=== PATIENT | male | born 1985 | race Caucasian/White ===

== ENCOUNTER 2018-03-17 17:02 | Emergency (ER) | payer OTHER ==
[~2018-03-17] VITALS: Ht 175.3 cm; Wt 72.0 kg
[2018-03-17] MEDS ORDERED: HYDROmorphone INJ 1 MG/ML SYR ONE (17:16)
[2018-03-17 17:23] VITALS: TEMP 36.7; Ht 175.3 cm; Wt 72.0 kg
[2018-03-17] MEDS ORDERED: OPTIRAY 320 IV PRN (17:30)
[2018-03-17] MEDS ORDERED: IBUP600T44 PO (17:41)
[2018-03-17] MEDS ORDERED: MIRT15TA2 PO (17:41)
[2018-03-17] MEDS ORDERED: AMLO10TA3 PO (17:41)
[2018-03-17] MEDS ORDERED: SULF800T23 PO (17:41)
[2018-03-17] MEDS ORDERED: DOXY100C76 PO (17:41)
[2018-03-17 17:42] LABS: BASO % 0.4 %; BASO ABS # 0.06 K/uL (0-0.2); EOS % 0.8 %; EOS ABS # 0.11 K/uL (0-0.5); HEMATOCRIT 43.1 % (42-52); HEMOGLOBIN 15.1 g/dL (14.0-18.0); IG# 0.05 K/uL (0.00-0.02); LYMPH ABS # 2.02 K/uL (1.2-3.4); MEAN CELL VOLUME 87.8 fL (80-100); MEAN CORPUSCULAR HEMOGLOBIN 30.8 pg (25-34); MEAN PLATELET VOLUME 10.4 fL (7.4-10.4); MONO % 7.3 %; MONO ABS # 1.06 K/uL (0.11-0.59); NEUT % 77.2 %; NEUT ABS # 11.18 K/uL (1.4-6.5); PLATELET COUNT 261 K/uL (130-400); RED CELL DISTRIBUTION WIDTH CV 12.7 % (11.5-14.5); RED CELL DISTRIBUTION WIDTH SD 40.8 fL (36.4-46.3); WHITE BLOOD COUNT 14.48 K/uL (4.8-10.8)
[2018-03-17] MEDS ORDERED: HYDR12.56 PO (17:42)
[2018-03-17] MEDS ORDERED: HYDROmorphone INJ 1 MG/ML SYR IV STA ×2 (18:01→18:58)
[2018-03-17 18:06] LABS: ALBUMIN 4.2 gm/dl (3.4-5.0); CALCIUM 9.1 mg/dl (8.5-10.1); CREATININE 1.2 mg/dl (0.60-1.40); POTASSIUM 3.1 mmol/L (3.5-5.1); TOTAL PROTEIN 7.8 gm/dl (6.4-8.2)
[2018-03-17] MEDS ORDERED: HEPARIN 25000 UNIT/500 ML D5W ONE (18:06)
[2018-03-17] MEDS ORDERED: HEPARIN SOD 5000 UNIT/0.5 ML CARP ONE (18:07)
--- NOTE | 2018-03-17 18:13 | DIAGNOSTIC IMAGING REPORT ---
CT ANGIO AA VERONICA LE RUNOFF CT DOSE: 1114.02 mGy.cm CLINICAL HISTORY: Absent left lower extremity pulse. TECHNIQUE: CT angiography was performed of the abdomen and both lower extremities in a dynamic helical fashion during intravenous administration of 119 cc of Optiray 320. MIP imaging was performed. A dose lowering technique was utilized adhering to the principles of ALARA. COMPARISON STUDY: None. FINDINGS: Imaging to the lung bases reveals a descending thoracic aortic stent. No hepatic or splenic masses are visualized are 2 phase study. The gallbladder appears normal. No pancreatic masses are visualized. No adrenal masses are visualized. No solid renal masses are visualized this arterial phase study. There are few tiny peripheral left renal hypodensities. Tiny infarct cannot be excluded. There are no transition zones indicate bowel obstruction. No acute inflammatory changes are present within the bowel. Old post right changes involve the right acetabulum. There is no evidence of abdominal aortic aneurysm or dissection. There is no evidence of celiac, superior mesenteric, or renal artery stenosis. There is no evidence of abdominal aortic stenosis. There is no evidence of common or external iliac artery stenosis. There is no evidence for right common femoral artery stenosis. The left common femoral artery is occluded distally with extension to the superficial femoral artery. The occlusion extends for a 5 cm segment. There is distal reconstitution. On a statistical basis this is secondary to an embolus. The remainder of the left superficial femoral artery appears normal. There is no evidence of right superficial femoral artery stenosis. On the right, there is a distal popliteal artery filling defect, likely representing an additional embolus. The anterior tibial posterior tibial and peroneal arteries are patent to the level of the ankle on the right. On the left, there is a filling defect within the left popliteal artery consistent with a small embolus. The posterior tibial and peroneal arteries runoff to the ankle. There is occlusion of the distal left anterior tibial artery. IMPRESSION: 1. 5 cm segmental occlusion of the distal left common femoral artery and proximal left superficial femoral artery with distal reconstitution. An embolus is suspected. 2. Filling defect within the left popliteal artery consistent with a small embolus. 3. Occlusion of distal left anterior tibial artery. 4. Filling defect within distal right popliteal artery, consistent with an additional embolus. 5. Very subtle peripheral left renal hypodensities. Tiny infarcts cannot be excluded. Electronically signed by: Allan Han M.D. 03/17/2018 6:12 PM Dictated Date/Time: 03/17/2018 5:55 PM
[2018-03-17 18:15] LABS: INR 1.1 (0.9-1.1)
[2018-03-17] MEDS ORDERED: HEPARIN 25,000 UNIT/500ML D5W 500 ML IV SCH (18:45)
--- NOTE | 2018-03-17 19:10 | EMERGENCY ROOM VISIT NOTE ---
History Report prepared by Shaista: Rajani Arrieta Under the Supervision of: Dr. Buzz Chau D.O. 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 He reports the pain starts at the top of his left foot and goes to his thigh. Patient initially had some mild paresthesias in while he was walking up the steps started to have severe pain. He states his episode began with some left leg tingling which resolved but he has numbness in his left leg and states he cannot move of feel it. Patient has never had this before. He does have a history of a previous aortic rupture with a stent placed per his report from a traumatic accident. Pt denies headache, change in vision, fevers , chest pain, back pain, shortness of breath, nausea, vomiting, diarrhea, pain with urination, and melena. 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 A total of 10 systems reviewed and were otherwise negative. Past Medical & Surgical Surgical Problems: (1) Hx of heart artery stent Family History Patient reports no known family medical history. Social History Smoking Status: Unknown if Ever Smoked Drug Use: none Housing Status: other Occupation Status: other Current/Historical Medications Scheduled Amlodipine (Norvasc), 10 MG PO DAILY Doxycycline Monohydrate (Monodox), 100 MG PO BID Hydrochlorothiazide (Hctz), 12.5 MG PO DAILY Mirtazapine Soltab (Remeron Soltab), 15 MG PO HS Sulfa/Trimethoprim (Bactrim Ds 800MG/160MG), 1 TAB PO BID Scheduled PRN Ibuprofen (Motrin), 600 MG PO Q6H PRN for Pain Allergies Coded Allergies: No Known Allergies (Unverified , 03/17/18) Physical Exam Vital Signs Date Time Temp Pulse Resp B/P (MAP) Pulse Ox O2 Delivery O2 Flow Rate FiO2 03/17/18 19:51 90 20 124/77 100 03/17/18 19:31 98 20 124/77 100 Room Air 03/17/18 19:07 109 03/17/18 18:56 89 18 124/75 100 Room Air 03/17/18 18:15 107 18 137/77 100 Room Air 03/17/18 17:23 36.7 97 22 153/107 100 Room Air Physical Exam GENERAL: Sitting up in bed, alert, holding left leg, shackled to bed, screaming , non-toxic EYE EXAM: normal conjunctiva. OROPHARYNX: no exudate, no erythema, lips, buccal mucosa, and tongue normal and mucous membranes are moist NECK: supple, no nuchal rigidity, no adenopathy, non-tender LUNGS: Clear to auscultation. Normal chest wall mechanics HEART: Tachycardic rate, no murmurs, S1 normal and S2 normal ABDOMEN: abdomen soft, non-tender, normo-active bowel sounds, no masses, no rebound or guarding. BACK: Back is symmetrical on inspection and there is no deformity, no midline tenderness, no CVA tenderness. SKIN: no rashes and no bruising UPPER EXTREMITIES: upper extremities are grossly normal. LOWER EXTREMITIES: No pitting edema. Unable to appreciate femoral popliteal or DP pulses on left leg. Skin is cool, left leg is slightly pale. NEURO EXAM: Barely able to flex and extend at the hip and knee of left leg. BEDSIDE ULTRASOUND: shows no arterial flow in left femoral artery. There is no waveform and there is also no color flow. Right lower extremity with biphasic arterial waveform and good flow. Medical Decision & Procedures ER Provider Diagnostic Interpretation: Radiology results as stated below per my review and the radiologist's interpretation: CT ANGIO AA VERONICA LE RUNOFF CT DOSE: 1114.02 mGy.cm CLINICAL HISTORY: Absent left lower extremity pulse. TECHNIQUE: CT angiography was performed of the abdomen and both lower extremities in a dynamic helical fashion during intravenous administration of 119 cc of Optiray 320. MIP imaging was performed. A dose lowering technique was utilized adhering to the principles of ALARA. COMPARISON STUDY: None. FINDINGS: Imaging to the lung bases reveals a descending thoracic aortic stent. No hepatic or splenic masses are visualized are 2 phase study. The gallbladder appears normal. No pancreatic masses are visualized. No adrenal masses are visualized. No solid renal masses are visualized this arterial phase study. There are few tiny peripheral left renal hypodensities. Tiny infarct cannot be excluded. There are no transition zones indicate bowel obstruction. No acute inflammatory changes are present within the bowel. Old post right changes involve the right acetabulum. There is no evidence of abdominal aortic aneurysm or dissection. There is no evidence of celiac, superior mesenteric, or renal artery stenosis. There is no evidence of abdominal aortic stenosis. There is no evidence of common or external iliac artery stenosis. There is no evidence for right common femoral artery stenosis. The left common femoral artery is occluded distally with extension to the superficial femoral artery. The occlusion extends for a 5 cm segment. There is distal reconstitution. On a statistical basis this is secondary to an embolus. The remainder of the left superficial femoral artery appears normal. There is no evidence of right superficial femoral artery stenosis. On the right, there is a distal popliteal artery filling defect, likely representing an additional embolus. The anterior tibial posterior tibial and peroneal arteries are patent to the level of the ankle on the right. On the left, there is a filling defect within the left popliteal artery consistent with a small embolus. The posterior tibial and peroneal arteries runoff to the ankle. There is occlusion of the distal left anterior tibial artery. IMPRESSION: 1. 5 cm segmental occlusion of the distal left common femoral artery and proximal left superficial femoral artery with distal reconstitution. An embolus is suspected. 2. Filling defect within the left popliteal artery consistent with a small embolus. 3. Occlusion of distal left anterior tibial artery. 4. Filling defect within distal right popliteal artery, consistent with an additional embolus. 5. Very subtle peripheral left renal hypodensities. Tiny infarcts cannot be excluded. Electronically signed by: Allan Han M.D. 03/17/2018 6:12 PM Laboratory Results 03/17/18 17:15 Red Blood Count 4.91, Mean Corpuscular Volume 87.8, Mean Corpuscular Hemoglobin 30.8, Mean Corpuscular Hemoglobin Concent 35.0, Mean Platelet Volume 10.4, Neutrophils (%) (Auto) 77.2, Lymphocytes (%) (Auto) 14.0, Monocytes (%) (Auto) 7.3, Eosinophils (%) (Auto) 0.8, Basophils (%) (Auto) 0.4, Neutrophils # (Auto) 11.18, Lymphocytes # (Auto) 2.02, Monocytes # (Auto) 1.06, Eosinophils # (Auto) 0.11, Basophils # (Auto) 0.06 03/17/18 17:15 Test 03/17/18 17:15 03/17/18 17:57 03/17/18 18:00 White Blood Count 14.48 K/uL (4.8-10.8) Red Blood Count 4.91 M/uL (4.7-6.1) Hemoglobin 15.1 g/dL (14.0-18.0) Hematocrit 43.1 % (42-52) Mean Corpuscular Volume 87.8 fL (80-100) Mean Corpuscular Hemoglobin 30.8 pg (25-34) Mean Corpuscular Hemoglobin Concent 35.0 g/dl (32-36) Platelet Count 261 K/uL (130-400) Mean Platelet Volume 10.4 fL (7.4-10.4) Neutrophils (%) (Auto) 77.2 % Lymphocytes (%) (Auto) 14.0 % Monocytes (%) (Auto) 7.3 % Eosinophils (%) (Auto) 0.8 % Basophils (%) (Auto) 0.4 % Neutrophils # (Auto) 11.18 K/uL (1.4-6.5) Lymphocytes # (Auto) 2.02 K/uL (1.2-3.4) Monocytes # (Auto) 1.06 K/uL (0.11-0.59) Eosinophils # (Auto) 0.11 K/uL (0-0.5) Basophils # (Auto) 0.06 K/uL (0-0.2) RDW Standard Deviation 40.8 fL (36.4-46.3) RDW Coefficient of Variation 12.7 % (11.5-14.5) Immature Granulocyte % (Auto) 0.3 % Immature Granulocyte # (Auto) 0.05 K/uL (0.00-0.02) Anion Gap 14.0 mmol/L (3-11) Est Creatinine Clear Calc Drug Dose 86.8 ml/min Estimated GFR () 90.9 Estimated GFR (Non- 78.4 BUN/Creatinine Ratio 19.8 (10-20) Calcium Level 9.1 mg/dl (8.5-10.1) Total Bilirubin 0.4 mg/dl (0.2-1) Direct Bilirubin 0.1 mg/dl (0-0.2) Aspartate Amino Transf (AST/SGOT) 17 U/L (15-37) Alanine Aminotransferase (ALT/SGPT) 26 U/L (12-78) Alkaline Phosphatase 81 U/L (45-117) Total Protein 7.8 gm/dl (6.4-8.2) Albumin 4.2 gm/dl (3.4-5.0) Lipase 164 U/L (73-393) Prothrombin Time 11.3 SECONDS (9.0-12.0) Prothromb Time International Ratio 1.1 (0.9-1.1) Lactic Acid Level 2.4 mmol/L (0.4-2.0) Urine Color YELLOW Urine Appearance CLEAR (CLEAR) Urine pH 7.5 (4.5-7.5) Urine Specific [place] 1.028 (1.000-1.030) Urine Protein NEG (NEG) Urine Glucose (UA) NEG (NEG) Urine Ketones 1+ (NEG) Urine Occult Blood NEG (NEG) Urine Nitrite NEG (NEG) Urine Bilirubin NEG (NEG) Urine Urobilinogen NEG (NEG) Urine Leukocyte Esterase NEG (NEG) Urine WBC (Auto) 1-5 /hpf (0-5) Urine RBC (Auto) 0-4 /hpf (0-4) Urine Hyaline Casts (Auto) 1-5 /lpf (0-5) Urine Epithelial Cells (Auto) 0-5 /lpf (0-5) Urine Bacteria (Auto) NEG (NEG) Laboratory results per my review. Medications Administered Medications (Trade) Dose Ordered Sig/Judy Route Start Time Stop Time Status Last Admin Dose Admin Hydromorphone HCl (Dilaudid Inj) 1 mg STK-MED ONCE .ROUTE 03/17/18 17:16 03/17/18 17:17 DC 03/17/18 17:21 1 MG Hydromorphone HCl (Dilaudid Inj) 1 mg NOW STAT IV 03/17/18 18:01 03/17/18 18:02 DC 03/17/18 18:15 1 MG Heparin Sodium/ Dextrose (Heparin 25,000 Unit/500ml D5W) 25,000 unit STK-MED ONCE .ROUTE 03/17/18 18:06 03/17/18 18:07 DC 03/17/18 18:14 25,000 UNIT Heparin Sodium (Porcine) (Heparin Sq 5000 Unit/0.5ml) 10,000 unit STK-MED ONCE .ROUTE 03/17/18 18:07 03/17/18 18:08 DC 03/17/18 18:15 6,000 UNIT Hydromorphone HCl (Dilaudid Inj) 1 mg NOW STAT IV 03/17/18 18:58 03/17/18 18:59 DC 03/17/18 19:04 1 MG Hydromorphone HCl (Dilaudid Inj) 1 mg TODAY@1946 ONCE IV 03/17/18 19:46 03/17/18 20:11 DC 03/17/18 19:46 1 MG ECG Per My Interpretation Indication: other (LLE numbnes) Rate (beats per minute): 89 Rhythm: sinus rhythm Findings: T-wave inversion (lead III), other (normal axis, no PVCs) ED Course ED COURSE: Vital signs were reviewed and showed hypertension situationally The patients medical record was reviewed The above diagnostic studies were performed and reviewed. ED treatments and interventions as stated above. 1654: The patient was evaluated in room B5. A complete history and physical examination was performed. 1716: Ordered Dilaudid Inj 1 mg IV 1724: I reviewed the patient's case with Dr. Ye, Vascular Surgery. He will look at the patients imaging. 1753: Ordered Heparin Sodium/Dextrose 1 ea IV 1755: I checked on the patient at this time. He has no preference for transfer. He will be transferred to [facility] 1801: Ordered Dilaudid Inj 1 mg IV 1804: I reviewed the patient's case with [facility]. They declined transfer at this time. 1814: Ordered Heparin Sodium/Dextrose 25,000 units .route 1815: Ordered Heparin Sodium (Porcine) 6000 units .route 1816: I reviewed the patient's case with Dr. Barros, [facility] , Dr. Barragan, [facility]. They will accept for transfer and evaluate the patient for further management. 1836: Upon reevaluation, the patient is in agreement. I discussed my findings with the patient and he understands and agrees with the treatment plan. Based on the patients age, coexisting illnesses, exam and lab findings the decision to treat as an outpatient was made. The patient remained stable while under my care. The patient appeared well at the time of transfer. The patient will be evaluated for further management. 185: Ordered Dilaudid Inj 1 mg IV Medical Decision Patient is a 32-year-old male who presents to ER from intermediate for severe left leg pain which started 30 minutes prior to arrival. I receive medical command call. Patient was given IV fentanyl prior to arrival. On exam his left lower extremity is pale cool and unable to palpate a pulse. Bedside ultrasound performed by myself shows no arterial flow in the left femoral. I also applied color and there is no flow seen in this window either. Based on this labs were obtained quickly and we establish a 18-gauge IV and patient was taken emergently for CTA of his lower extremity. I interpreted films and it appeared as though he had a clot in the left common femoral tracking to the superficial femoral. Prior to going to CT I had already discussed the case with Dr. Ye from vascular surgery. He is currently not on and unable to come in but was willing to review the images. After the CT he reviewed the images as well. We both agreed he would benefit from heparin. He was placed on heparin drip and bolus. Patient again denied any chest pain or shortness of breath. He was given multiple doses of IV Dilaudid. Discussed with [facility] who notes due to volume he is unable to accept the patient. We discussed with the patient and he preferred [facility]. Patient was accepted and discussed with vascular surgery and was accepted to the ED by Dr. Barragan. Lactate was slightly elevated as expected. He does have a mild leukocytosis of 14,000. CO2 is slightly low at 19 and potassium slightly low at 3. Patient will be transferred via helicopter to [facility]. He was monitored closely while in the ER. Medication Reconcilliation Current Medication List: was personally reviewed by me Blood Pressure Screening Patient's blood pressure: Elevated blood pressure Blood pressure disposition: Elevated BP felt to be situational Consults Time Called: 1723 Consulting Physician: Dr. Ye, Vascular Surgery Returned Call: [phone] I reviewed the patient's case with Dr. Ye, Vascular Surgery. He will look at the patients imaging. Additional Consults: Time Called: 175 Consulted Physician: [facility] Returned Call: [phone] Additional Comments: I reviewed the patient's case with [facility]. They declined transfer at this time. Time Called: 180 Consulted Physician: [facility] Returned Call: [phone] Additional Comments: I reviewed the patient's case with Dr. Barros, [facility], [facility]. They will accept for transfer and evaluate the patient for further management. Impression Primary Impression: Ischemic leg Additional Impression: Hypokalemia Critical Care I have personally spent 75 minutes of critical care time in the direct management of this patient. This includes bedside care, interpretation of diagnostic studies, and testing, discussion with consultants, patient, and family members, and other required patient management activities. This 75 minutes is in excess of all separately billable procedures. Scribe Attestation The scribe's documentation has been prepared under my direction and personally reviewed by me in its entirety. I confirm that the note above accurately reflects all work, treatment, procedures, and medical decision making performed by me. Departure Information Dispostion Transfer Acute Care Facility ([facility], [facility]) Problem Qualifiers
[2018-03-17] MEDS ORDERED: HYDROmorphone INJ 1 MG/ML SYR IV ONE (19:46)
[2018-03-17 19:51] VITALS: BP 124/77; PULSE 90; O2SAT 100
[2018-03-17] MEDS ORDERED: NURSING VERBAL MED ORDER ONE (20:15)
== END 2018-03-17 19:52 | disposition short-term general hospital (02) ==
LOC: C.EDB 17:02
DX: I70.202 Unspecified atherosclerosis of native arteries of extremities, left leg (principal); E87.6 Hypokalemia; Z79.899 Other long term (current) drug therapy

== ENCOUNTER 2018-07-24 20:28 | Inpatient (IN) ==
[2018-07-24 21:16] LABS: Basophils # (auto) 0.05 K/uL (0-0.2); Basophils % (auto) 0.7 %; Eosinophils # (auto) 0.14 K/uL (0-0.5); Eosinophils % (auto) 1.8 %; Hematocrit (blood only) 45.3 % (42-52); Hemoglobin 15.7 g/dL (14.0-18.0); Immature Granulocytes # (auto) 0.02 K/uL (0.00-0.02); Immature Granulocytes % (auto) 0.3 %; Lymphocytes # (auto) 2.42 K/uL (1.2-3.4); Lymphocytes % (auto) 31.6 %; Mean Corpuscular Hgb Conc 34.7 g/dL (32-36); Mean Corpuscular Volume 80.9 fL (80-100); Mean Platelet Volume 9.6 fL (7.4-10.4); Monocytes # (auto) 0.46 K/uL (0.11-0.59); Neutrophils # (auto) 4.56 K/uL (1.4-6.5); Neutrophils % (auto) 59.6 %; Platelet Count 276 K/uL (130-400); RDW Coefficient of Variation 15.7 % (11.5-14.5); RDW Standard Deviation 46.4 fL (36.4-46.3); White Blood Count 7.65 K/uL (4.8-10.8)
[2018-07-24 21:26] LABS: INR 2.1 (0.9-1.1); Partial Thromboplastin Ratio 1.3; Partial Thromboplastin Time 33.6 Seconds (21.0-31.0)
[2018-07-24 21:32] LABS: BUN Creatinine Ratio 14.2 (10-20); Calcium 9.2 mg/dl (8.5-10.1); Est GFR (African American) 96.7; Est GFR (Non-African American) 83.4; Potassium 3.4 mmol/L (3.5-5.1)
[2018-07-24] MEDS ORDERED: OPTIRAY 320 125ml IV PRN (21:46)
--- NOTE | 2018-07-24 22:14 | CT Scan Report ---
CT ANGIOGRAM OF THE ABDOMEN AND PELVIS WITH BILATERAL LOWER EXTREMITY RUNOFF CLINICAL HISTORY: Left leg pain. COMPARISON STUDY: CT angiogram of the abdomen and pelvis with lower extremity runoff dated 03/17/2018 . TECHNIQUE: Following the IV administration of 115 cc of Optiray 320, CT angiogram of the abdomen and pelvis with bilateral lower externally runoff was performed from the lung bases to the feet. Images a re reviewed in the axial, sagittal, and coronal planes. 3-D MIPS images are created and assessed. IV contrast was administered without complication. A dose lowering technique was utilized adhering to t he principles of ALARA. CT DOSE: 1093.56 mGy.cm FINDINGS: Lower chest: The heart is normal in size and without pericardial effusion. Minimal nodular thickening is seen on the right major fissure. The lung bases are otherwise clear noting dependent atelectasis. A stent graft is partially visualized in the descending thoracic aorta. The visualized portions of t he thoracic aorta are widely patent. There is a tiny hiatal hernia. Liver: The contrast-enhanced liver is normal in size, contour, and attenuation. There is no intrahepa tic or ductal dilatation. The main portal vein appears patent. A 1.7 cm hypervascular focus in the in ferior right lobe as seen on image #175. This is unchanged from previous and may represent a flash fi lling hemangioma. Gallbladder: Unremarkable. Spleen: Normal in size and attenuation noting heterogeneous arterial phase enhancement. Pancreas: Unremarkable. Adrenal glands: Unremarkable. Kidneys: The contrast since kidneys are normal in size and without hydronephrosis. The kidneys enhanc e symmetrically. Cortical scarring is noted in the lower pole of the right kidney. Abdominal aorta and iliac arteries: The abdominal aorta is normal in course and caliber. The iliac ar teries are widely patent bilaterally. There is no dissection. Major branches of the abdominal aorta: The celiac trunk, superior mesenteric, and inferior mesenteric arteries are widely patent. An accessory left hepatic artery arises from the left gastric artery. Th e splenic artery is diminutive but patent. Single bilateral renal arteries are widely patent. Right lower extremity runoff: The right common femoral artery is widely patent, as is the right profu nda femoris artery. The right superficial femoral artery and popliteal arteries are widely patent. Th ere is a small filling defect identified at the origin of the tibioperoneal trunk seen on image #[id number] consistent with a small embolus. There is three-vessel runoff to the foot. Left lower extremity runoff: The calf vessels are diminutive. The left common femoral artery is widel y patent, as is the left profunda femoris artery. The left superficial femoral and the proximal to mi d portions of the popliteal artery are widely patent. There is a large and nearly occlusive focal jeromy ling defect identified within the distal popliteal artery just above the bifurcation seen on image #9 17 consistent with embolus. There is three-vessel runoff to the foot. Bowel: The small bowel and colon are normal in course and caliber. The appendix is well-visualized a nd normal. Peritoneum: There is no intraperitoneal free air or abdominal ascites. There is a small fat-containin g umbilical hernia. Lymphadenopathy: None. Pelvic viscera: The bladder, prostate, and seminal vesicles are normal as visualized. Postoperative c hange is noted in the left groin. Skeletal structures: No destructive bony lesions are seen. Lower extremity soft tissues: There is mild soft tissue edema in the left lower extremity which is as ymmetric to the right. IMPRESSION: 1. Unremarkable CT angiogram of the abdominal aorta and its major branches, as well as the iliac radha lady. 2. The common femoral and superficial femoral arteries are widely patent bilaterally. 3. There is a large and nearly occlusive focal filling defect identified within the distal left popli teal artery just above the bifurcation consistent with an embolus. 4. There is a small nonocclusive filling defect identified at the origin of the right tibioperoneal t runk consistent with a small embolus. 5. There is three-vessel runoff to the foot bilaterally. 6. There are no acute infectious or inflammatory findings in the abdomen or pelvis. 7. A 1.7 cm hypervascular lesion in the inferior right lobe of the liver is unchanged from previous a nd although incompletely characterized likely represents a small hemangioma. 8. There is mild soft tissue edema in the left lower extremity which is asymmetric to the right. 9. Additional findings as above. Electronically signed by: Keyur Long M.D. 07/24/2018 10:11 PM
[2018-07-24] MEDS ORDERED: Heparin IV Standard *NO* Bolus ONE (23:37)
[2018-07-24] MEDS ORDERED: HEPARIN 25000 UNIT/500 ML D5W IV ONE (23:44)
[2018-07-24] MEDS ORDERED: POTASSIUM CHLORIDE 20 MEQ TABCR PO STA (23:44)
[2018-07-24] MEDS ORDERED: POTASSIUM CHLORIDE 10 MEQ TABCR PO ONE (23:54)
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
--- NOTE | 2018-07-25 00:57 | History & Physical Report ---
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 (ER provider already in touch with Dr. Ye.) Replace potassium, hold home diuretic for now Nicotine patch as needed Complete Bactrim Rx DVT prophylaxis heparin Full code Present on Admission?: Yes History of Present Illness Chief Complaint: Left leg pain Primary Care Provider: [facility] History obtained from patient and records. 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 Recent confinement [facility] February 2018 for ischemic left lower extremity status post L femoropopliteal catheter thromboembolectomy status post decompressive fasciotomy. Thoracic aortic endograft thrombus noted on CTA during confinement. Patient discharged on Lovenox Coumadin bridge. Improved postop LLE swelling on outpatient [facility] [place] surgery follow-up visit last May 2018. Follow-up scheduled August 2018 with contemplated repeat CTA of the chest to guide decision regarding duration of Coumadin therapy as per outpatient note. One day history of achy left calf pain symptoms worse with pressure and movement. No chest pain, no SOB. No fever, no chills. Patient brought to the emergency room. CT angio aorta with runoff showed: 1. Unremarkable CT angiogram of the abdominal aorta and its major branches, as well as the iliac arteries. 2. The common femoral and superficial femoral arteries are widely patent bilaterally. 3. There is a large and nearly occlusive focal filling defect identified within the distal left popliteal artery just above the bifurcation consistent with an embolus. 4. There is a small nonocclusive filling defect identified at the origin of the right tibioperoneal trunk consistent with a small embolus. 5. There is three-vessel runoff to the foot bilaterally. 6. There are no acute infectious or inflammatory findings in the abdomen or pelvis. 7. A 1.7 cm hypervascular lesion in the inferior right lobe of the liver is unchanged from previous and although incompletely characterized likely represents a small hemangioma. 8. There is mild soft tissue edema in the left lower extremity which is asymmetric to the right. Vascular surgery recommended transfer to tertiary center. [facility] unable to accept patient due to bed unavailability. IV heparin started at the ER. Medical History as above Surgical History : Procedures, leg fasciotomy/debridement Family History : Hypertension Personal/Social history : 1/4 pack daily, no EtOH intake, half-way inmate Allergies Allergy/AdvReac Type Severity Reaction Status Date / Time No Known Allergies Allergy Unverified 07/24/18 21:35 Home Medications Home Medications Medication Instructions Recorded Confirmed Type amlodipine 10 mg PO DAILY 07/24/18 07/24/18 History benzoyl peroxide 1 applic TOPICAL BID 07/24/18 07/24/18 History hydrochlorothiazide 12.5 mg PO DAILY 07/24/18 07/24/18 History mirtazapine [Remeron] 15 mg PO HS 07/24/18 07/24/18 History sulfamethoxazole-trimethoprim 1 tab PO BID 07/24/18 07/24/18 History [Bactrim DS] warfarin 7.5 mg PO HS 07/24/18 07/24/18 History Past Med/Surg History Medical History History of blood clots Surgical History History of fasciotomy Social History Current Living Situation: Other Current Living Situation Comment: half-way Other Information That Helps Us Care for You: No Feels Safe at Home: Yes Smoking Status: Current every day smoker Tobacco Type: cigarettes Cigarettes per Day: 5 Tobacco Cessation Education Requested by Patient: No Hx Alcohol Use: No Beliefs That Will Affect Care: None Preferred Language: Japanese Review of Systems As per HPI, all 10 systems reviewed, all other ROS negative Physical Exam 2 Vital Signs (Past 24 Hours): Last Vital Signs Temp 36.9 C 07/24/18 20:29 Pulse 80 07/24/18 23:01 Resp 18 07/24/18 23:01 BP 140/78 07/24/18 23:01 Pulse Ox 94 07/24/18 23:01 Physical Exam: GENERAL: Comfortable, no respiratory distress, shackled to stretcher SKIN: Normal color, warm HEENT: Bespectacled, pink palpebral conjunctivae, no ptosis, dry buccal mucosa NECK : Supple, no tenderness CHEST : CTA, no tenderness HEART : RRR, no obvious murmurs; no palpable popliteal pulse, LLE ABDOMEN: Some distention, nontender EXTREMITIES : Minimal LLE swelling, no tenderness; healed/well coaptated incision sites left lower extremity NEUROLOGIC : Coherent, no facial asymmetry, no other gross focality Results & Data Laboratory Results Laboratory Results WBC 7.65 K/uL (4.8-10.8) 07/24/18 21:06 RBC 5.60 M/uL (4.7-6.1) 07/24/18 21:06 Hgb 15.7 g/dL (14.0-18.0) 07/24/18 21:06 Hct 45.3 % (42-52) 07/24/18 21:06 MCV 80.9 fL (80-100) 07/24/18 21:06 MCH 28.0 pg (25-34) 07/24/18 21:06 MCHC 34.7 g/dL (32-36) 07/24/18 21:06 RDW Std Deviation 46.4 fL (36.4-46.3) H 07/24/18 21:06 RDW Coeff of Vignesh 15.7 % (11.5-14.5) H 07/24/18 21:06 Plt Count 276 K/uL (130-400) 07/24/18 21:06 MPV 9.6 fL (7.4-10.4) 07/24/18 21:06 Immature Gran % (Auto) 0.3 % 07/24/18 21:06 Neut % (Auto) 59.6 % 07/24/18 21:06 Lymph % (Auto) 31.6 % 07/24/18 21:06 [place] % (Auto) 6.0 % 07/24/18 21:06 Eos % (Auto) 1.8 % 07/24/18 21:06 Baso % (Auto) 0.7 % 07/24/18 21:06 Immature Gran # (Auto) 0.02 K/uL (0.00-0.02) 07/24/18 21:06 Neut # (Auto) 4.56 K/uL (1.4-6.5) 07/24/18 21:06 Lymph # (Auto) 2.42 K/uL (1.2-3.4) 07/24/18 21:06 [place] # (Auto) 0.46 K/uL (0.11-0.59) 07/24/18 21:06 Eos # (Auto) 0.14 K/uL (0-0.5) 07/24/18 21:06 Baso # (Auto) 0.05 K/uL (0-0.2) 07/24/18 21:06 PT 20.0 Seconds (9.0-12.0) H 07/24/18 21:06 INR 2.1 (0.9-1.1) H 07/24/18 21:06 APTT 33.6 Seconds (21.0-31.0) H 07/24/18 21:06 PTT Ratio 1.3 07/24/18 21:06 Sodium 138 mmol/L (136-145) 07/24/18 21:06 Potassium 3.4 mmol/L (3.5-5.1) L 07/24/18 21:06 Chloride 102 mmol/L (98-107) 07/24/18 21:06 Carbon Dioxide 29 mmol/L (21-32) 07/24/18 21:06 Anion Gap 7.0 (3-11) 07/24/18 21:06 BUN 16 mg/dl (7-18) 07/24/18 21:06 Creatinine 1.14 mg/dl (0.6-1.4) 07/24/18 21:06 Est Cr Clr Drug Dosing 103.0 ml/min 07/24/18 21:06 Est GFR ( Amer) 96.7 07/24/18 21:06 Est GFR (Non-Af Amer) 83.4 07/24/18 21:06 BUN/Creatinine Ratio 14.2 (10-20) 07/24/18 21:06 Glucose 94 mg/dl (70-99) 07/24/18 21:06 Calcium 9.2 mg/dl (8.5-10.1) 07/24/18 21:06 Magnesium 2.0 mg/dl (1.8-2.4) 07/24/18 21:06 Diagnostic Findings CTA as above
[2018-07-25] MEDS ORDERED: Heparin IV Standard *NO* Bolus SCH (02:02)
[2018-07-25] MEDS ORDERED: PROCHLORPERAZINE 5 MG in SYRINGE 4 ML IV PRN (02:02)
[2018-07-25] MEDS ORDERED: TRAMADOL HCL 50 MG TABLET PO PRN (02:02)
[2018-07-25] MEDS ORDERED: MoRPHine SULFATE 4 MG/ML 1 ML CARP\\VIAL IV PRN (02:02)
[2018-07-25] MEDS ORDERED: ACETAMINOPHEN 325 MG TAB PO PRN (02:02)
[2018-07-25] MEDS ORDERED: NSS + 20MEQ KCL 20 MEQ/1,000 ML BAG IV ONE (02:30)
[2018-07-25] MEDS: HEPARIN STANDARD DEXTROSE 25,000 UNITS/500 ML IV SCH ×2 (03:55→17:17)
[2018-07-25 06:28] LABS: Basophils # (auto) 0.07 K/uL (0-0.2); Basophils % (auto) 0.9 %; Eosinophils # (auto) 0.19 K/uL (0-0.5); Eosinophils % (auto) 2.6 %; Hematocrit (blood only) 40.7 % (42-52); Hemoglobin 13.7 g/dL (14.0-18.0); Immature Granulocytes # (auto) 0.01 K/uL (0.00-0.02); Immature Granulocytes % (auto) 0.1 %; Mean Corpuscular Hgb Conc 33.7 g/dL (32-36); Mean Corpuscular Volume 81.4 fL (80-100); Mean Platelet Volume 9.8 fL (7.4-10.4); Monocytes # (auto) 0.73 K/uL (0.11-0.59); Monocytes % (auto) 9.8 %; Neutrophils # (auto) 3.53 K/uL (1.4-6.5); Neutrophils % (auto) 47.6 %; Platelet Count 250 K/uL (130-400); RDW Standard Deviation 47.3 fL (36.4-46.3); White Blood Count 7.43 K/uL (4.8-10.8)
[2018-07-25 06:55] LABS: Partial Thromboplastin Ratio 2.7
[2018-07-25 06:56] LABS: Partial Thromboplastin Time 69.2 Seconds (21.0-31.0)
[2018-07-25 07:03] LABS: BUN Creatinine Ratio 17.7 (10-20); Calcium 8.4 mg/dl (8.5-10.1); Creatinine Clr Calc Pharmacy 113.1 ml/min; Est GFR (African American) 120.6; Potassium 3.9 mmol/L (3.5-5.1)
[2018-07-25] MEDS: AMLODIPINE BESYLATE 5 MG TAB PO SCH (09:04)
--- NOTE | 2018-07-25 11:09 | Consultation ---
Date of Consultation July 25, 2018 Assessment & Plan (1) Embolism of left popliteal artery: At this point in time he is asymptomatic for his the small embolizations. We will treat him conservatively and keep him anticoagulated. If he should develop pain or ischemic changes of the lower extremities then surgical intervention will be needed. (2) Thrombus of aorta: I did order a CTA of his thoracic aorta to better evaluate the area of suspected thrombus at the site of endovascular repair. Thank you very much for letting us participate in the care of this patient. History of Present Illness Reason for Consultation: Embolism in both lower extremities. Attending Physician: Onur Lacey MD History of Present Illness This is a 32-year-old gentleman who had a traumatic rupture of the thoracic aorta in 2017. This was repaired with endovascular graft. He subsequently developed embolization to his legs undergoing thrombolytic therapy followed by fasciotomies. At this point he is developed discomfort in his left calf which occurred one day prior to admission. He claims that this is the same as it did in the past when he had his embolizations however not as bad. He was admitted and found to have a thrombus in his left popliteal distally as well as his tibioperoneal trunk and the right leg. He has no rest pain in his legs at this point in time and he denies any claudication prior to this admission. He does have a clot present in his aortic arch in the area of the repair per his history. He was on anticoagulation with Coumadin for this. Allergies Allergy/AdvReac Type Severity Reaction Status Date / Time No Known Allergies Allergy Unverified 07/24/18 21:35 Home Medications Home Medications Medication Instructions Recorded Confirmed Type amlodipine 10 mg PO DAILY 07/24/18 07/24/18 History benzoyl peroxide 1 applic TOPICAL BID 07/24/18 07/24/18 History hydrochlorothiazide 12.5 mg PO DAILY 07/24/18 07/24/18 History mirtazapine [Remeron] 15 mg PO HS 07/24/18 07/24/18 History sulfamethoxazole-trimethoprim 1 tab PO BID 07/24/18 07/24/18 History [Bactrim DS] warfarin 7.5 mg PO HS 07/24/18 07/24/18 History Patient History Medical History History of blood clots Surgical History History of fasciotomy Social History Current Living Situation: Other Current [facility] Situation Comment: [facility] Other Information That Helps Us Care for You: No Feels Safe at Home: Yes Smoking Status: Current every day smoker Tobacco Type: cigarettes Cigarettes per Day: 5 Tobacco Cessation Education Requested by Patient: No Hx Alcohol Use: No Beliefs That Will Affect Care: None Preferred Language: Gabonese Communication Ability: Effective Hydrographic Surveyor Required: No Review of Systems Constitutional: no problem reported Respiratory: no problem reported Gastrointestinal: no problem reported Musculoskeletal: no problem reported Integumentary: no problem reported Neurologic: no problem reported Psychiatric: no problem reported Physical Exam 2 Vital Signs (Past 24 Hours): Last Vital Signs Temp 36.7 C 07/25/18 07:31 Pulse 72 07/25/18 07:31 Resp 18 07/25/18 07:31 BP 117/70 07/25/18 07:31 Pulse Ox 95 07/25/18 07:31 On exam he is awake oriented x3 is in no apparent distress. Blood pressure is 117/70 his pulse is 72. Lungs are clear heart had a regular rate and rhythm. His abdominal exam was benign. There is no masses felt. Vascular exam reveals radials, carotids, superficial temporal arteries 3+2 bilaterally. Femoral pulses, dorsalis pedis pulses, posterior tibial artery pulses are all +2 bilaterally. There is good capillary refill in both feet. Neurologic exam is intact.
[2018-07-25] MEDS ORDERED: IOVERSOL 100ml IV PRN (11:35)
--- NOTE | 2018-07-25 11:54 | CT Scan Report ---
Study: CT angiography of the chest HISTORY: Peripheral embolism FINDINGS: Study is performed to multi phase fashion. There is an aortic mesh stent extending from the aortic arch inferiorly to slightly superior to the diaphragm. The enhanced component of the study sh ows a trace amount of thrombus within the lumen of the aorta although a major thrombus component is n ot appreciated. Hilar and mediastinal regions show no significant adenopathy. The lungs are considered clear. No evidence for infiltrate or pneumothorax. IMPRESSION: 1. Vascular stent within the thoracic aorta extending from the aortic arch to a position slightly abo ve the diaphragmatic hiatus .2. Trace amount of intraluminal thrombus with the bulk of the stent widely patent. 3. Study chest is otherwise negative. Electronically signed by: Otoniel Dunaway M.D. 07/25/2018 11:52 AM
--- NOTE | 2018-07-25 17:06 | Hospitalist Progress Note ---
Date of Service July 25, 2018 Assessment & Plan (1) Arterial thromboembolism: Left Popliteal artery Embolus Thrombus of Aorta H/O Thromboembolectomy/fasciotomy 02/2018 H/O Thoracic aortic endograft thrombosis on Coumadin H/O Traumatic aortic rupture sp TEVAR (2016) On coumadin therapy chronically PT/INR :2.1 on 07/24/18 Continue Heparin ggt Currently asymptomatic Plan to treat conservatively for now unless patient become symptomatic Appreciate Vascular Surgery Input Hypertension stable Continue Amlodipine Hypokalemia Likely 2/2 diuretics Replace Potassium as needed Monitor Ongoing tobacco abuse [employer] to quit H/O Osteomyelitis right fourth finger Continue Bactrim Rx (last dose August 2018) DVT Px: On Heparin ggt Code Status: Full Code Subjective Patient is seen and examined at bedside Currently denies any leg pain Also denies chest pain, dyspnea, dizziness, nausea Guards at bedside On Heparin ggt Physical Exam 2 Vital Signs (Past 24 Hours): Last Vital Signs Temp 36.9 C 07/25/18 15:00 Pulse 62 07/25/18 15:00 Resp 20 07/25/18 15:00 BP 125/67 07/25/18 15:00 Pulse Ox 95 07/25/18 15:00 Physical Exam: Physical Exam: Vitals signs as noted above General Appearance:Moderately built and nourished, no apparent distress Head: normocephalic, Atraumatic Eyes: normal inspection, EOMI Neck: supple, Trachea midline Respiratory/Chest: Normal breath sounds, CTA Cardiovascular: S1, S2, No murmur Abdomen/GI:Soft, Non tender, Bowel sounds present Extremities/Musculoskelatal:normal inspection, no edema Neurologic/Psych:AAOX3, grossly no focal neurological deficits Skin: normal color, warm Results & Data Laboratory Results Short CBC 07/24/18 07/25/18 Range/Units 21:06 05:58 WBC 7.65 7.43 (4.8-10.8) K/uL Hgb 15.7 13.7 L (14.0-18.0) g/dL Hct 45.3 40.7 L (42-52) % Plt Count 276 250 (130-400) K/uL BMP 07/24/18 07/25/18 21:06 05:58 Sodium 138 140 Potassium 3.4 L 3.9 Chloride 102 107 Carbon Dioxide 29 28 BUN 16 17 Creatinine 1.14 0.95 Glucose 94 80 Calcium 9.2 8.4 L Diagnostic Findings CTA: 1. Vascular stent within the thoracic aorta extending from the aortic arch to a position slightly above the diaphragmatic hiatus .2. Trace amount of intraluminal thrombus with the bulk of the stent widely patent. 3. Study chest is otherwise negative. ABD CTA: 1. Unremarkable CT angiogram of the abdominal aorta and its major branches, as well as the iliac arteries. 2. The common femoral and superficial femoral arteries are widely patent bilaterally. 3. There is a large and nearly occlusive focal filling defect identified within the distal left popliteal artery just above the bifurcation consistent with an embolus. 4. There is a small nonocclusive filling defect identified at the origin of the right tibioperoneal trunk consistent with a small embolus. 5. There is three-vessel runoff to the foot bilaterally. 6. There are no acute infectious or inflammatory findings in the abdomen or pelvis. 7. A 1.7 cm hypervascular lesion in the inferior right lobe of the liver is unchanged from previous and although incompletely characterized likely represents a small hemangioma. 8. There is mild soft tissue edema in the left lower extremity which is asymmetric to the right. 9. Additional findings as above.
[2018-07-25] MEDS ORDERED: MIRTAZAPINE TAB 15 MG TAB PO SCH (21:00)
[2018-07-25] MEDS: SULFAMETHOXAZOLE/TRIMETHOPRIM DS 800/160MG TAB PO SCH (21:38)
[2018-07-26 05:54] LABS: Hematocrit (blood only) 39.8 % (42-52); Hemoglobin 13.4 g/dL (14.0-18.0); Mean Corpuscular Hgb Conc 33.7 g/dL (32-36); Mean Corpuscular Volume 81.4 fL (80-100); Mean Platelet Volume 9.7 fL (7.4-10.4); Platelet Count 219 K/uL (130-400); RDW Standard Deviation 47.9 fL (36.4-46.3); Red Blood Count 4.89 M/uL (4.7-6.1); White Blood Count 6.13 K/uL (4.8-10.8)
[2018-07-26 06:17] LABS: Partial Thromboplastin Ratio 4.2
[2018-07-26 06:20] LABS: Partial Thromboplastin Time 109.2 Seconds (21.0-31.0)
[2018-07-26 06:32] LABS: BUN Creatinine Ratio 16.5 (10-20); Calcium 8.1 mg/dl (8.5-10.1); Creatinine Clr Calc Pharmacy 126.4 ml/min; Est GFR (African American) 131.8; Est GFR (Non-African American) 113.7
[2018-07-26] MEDS: AMLODIPINE BESYLATE 5 MG TAB PO SCH (08:16)
[2018-07-26] MEDS: SULFAMETHOXAZOLE/TRIMETHOPRIM DS 800/160MG TAB PO SCH (08:17)
--- NOTE | 2018-07-26 09:50 | Surgery Progress Note ---
Date of Service July 26, 2018 Assessment & Plan (1) Embolism of left popliteal artery: No intervention is planned for his popliteal artery blood clot. He does have a small clot in the right lower extremity which is which he claims was there in the past. The clot in the left leg may also be old from prior embolization. At this point in time he needs to be back on his anticoagulation and therapeutic. At that time he could be discharged back to his facility. (2) Thrombus of aorta: CTA of his thoracic aorta shows an endograft in place with no evidence of endoleak. There is slight bird beaking of the proximal portion of the graft but no evidence of significant thrombus is noted. Subjective Patient is not complaining of any left leg pain at all at this time. Physical Exam 2 Vital Signs (Past 24 Hours): He is ambulating around his room without difficulty.Last Vital Signs Temp 36.6 C 07/26/18 07:32 Pulse 60 07/26/18 07:32 Resp 14 07/26/18 07:32 BP 115/68 07/26/18 07:32 Pulse Ox 98 07/26/18 07:32 He maintains good pulses in both lower extremities. There is good capillary refill and no ischemic changes of either lower extremity.
--- NOTE | 2018-07-26 10:00 | Communication Note ---
Date of Service: July 26, 2018 Needs follow up by [facility] vascular in [place].
[2018-07-26 10:18] LABS: Prothrombin Time 19.5 Seconds (9.0-12.0)
[2018-07-26] MEDS: HEPARIN STANDARD DEXTROSE 25,000 UNITS/500 ML IV SCH (12:21)
--- NOTE | 2018-07-26 12:57 | Hospitalist Progress Note ---
Date of Service July 26, 2018 Assessment & Plan (1) Arterial thromboembolism: Left Popliteal artery Embolus Thrombus of Aorta H/O Thromboembolectomy/fasciotomy 02/2018 H/O Thoracic aortic endograft thrombosis on Coumadin H/O Traumatic aortic rupture sp TEVAR (2016) On coumadin therapy chronically PT/INR :2.0 today Plan to discontinue Heparin ggt and resume coumadin Currently asymptomatic Plan to treat conservatively for now unless patient become symptomatic Appreciate Vascular Surgery Input Popliteal artery clot is likely chronic from prior embolization Thrombus of aorta is considered to be insignificant and no evidence of endograft leak Needs follow up with [facility] Vascular surgery in [place] Hypertension stable Continue Amlodipine Hypokalemia Likely 2/2 diuretics Replace Potassium as needed Monitor Ongoing tobacco abuse [employer]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 H/O Osteomyelitis right fourth finger Continue Bactrim Rx (last dose August 2018) DVT Px: On Heparin ggt Code Status: Full Code Subjective Patient is seen and examined at bedside Doing well today denies any leg pain No other complaints Also denies chest pain, dyspnea, dizziness, nausea, abd pain Guards at bedside Planned to be discharged back to correctional facility today Physical Exam 2 Vital Signs (Past 24 Hours): Last Vital Signs Temp 36.6 C 07/26/18 07:32 Pulse 60 07/26/18 07:32 Resp 14 07/26/18 07:32 BP 115/68 07/26/18 07:32 Pulse Ox 98 07/26/18 07:32 Physical Exam: Physical Exam: Vitals signs as noted above General Appearance:Moderately built and nourished, no apparent distress Head: normocephalic, Atraumatic Eyes: normal inspection, EOMI Neck: supple, Trachea midline Respiratory/Chest: Normal breath sounds, CTA Cardiovascular: S1, S2, No murmur Abdomen/GI:Soft, Non tender, Bowel sounds present Extremities/Musculoskelatal:normal inspection, no edema Neurologic/Psych:AAOX3, grossly no focal neurological deficits Skin: normal color, warm Results & Data Laboratory Results Short CBC 07/26/18 Range/Units 05:43 WBC 6.13 (4.8-10.8) K/uL Hgb 13.4 L (14.0-18.0) g/dL Hct 39.8 L (42-52) % Plt Count 219 (130-400) K/uL BMP 07/26/18 05:43 Sodium 140 Potassium 4.0 Chloride 108 H Carbon Dioxide 26 BUN 14 Creatinine 0.85 Glucose 88 Calcium 8.1 L
--- NOTE | 2018-07-26 13:03 | Discharge Summary ---
Date of Service July 26, 2018 Admission HPI Per Admitting Provider History obtained from patient and records. 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 Recent confinement [facility] February 2018 for ischemic left lower extremity status post L femoropopliteal catheter thromboembolectomy status post decompressive fasciotomy. Thoracic aortic endograft thrombus noted on CTA during confinement. Patient discharged on Lovenox Coumadin bridge. Improved postop LLE swelling on outpatient [facility] Vascular surgery follow-up visit last May 2018. Follow-up scheduled August 2018 with contemplated repeat CTA of the chest to guide decision regarding duration of Coumadin therapy as per outpatient note. One day history of achy left calf pain symptoms worse with pressure and movement. No chest pain, no SOB. No fever, no chills. Patient brought to the emergency room. CT angio aorta with runoff showed: 1. Unremarkable CT angiogram of the abdominal aorta and its major branches, as well as the iliac arteries. 2. The common femoral and superficial femoral arteries are widely patent bilaterally. 3. There is a large and nearly occlusive focal filling defect identified within the distal left popliteal artery just above the bifurcation consistent with an embolus. 4. There is a small nonocclusive filling defect identified at the origin of the right tibioperoneal trunk consistent with a small embolus. 5. There is three-vessel runoff to the foot bilaterally. 6. There are no acute infectious or inflammatory findings in the abdomen or pelvis. 7. A 1.7 cm hypervascular lesion in the inferior right lobe of the liver is unchanged from previous and although incompletely characterized likely represents a small hemangioma. 8. There is mild soft tissue edema in the left lower extremity which is asymmetric to the right. Vascular surgery recommended transfer to tertiary center. [facility] and [facility] unable to accept patient due to bed unavailability. IV heparin started at the ER. 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 Vascular stent within the thoracic aorta extending from the aortic arch to a position slightly above the diaphragmatic hiatus .2. Trace amount of intraluminal thrombus with the bulk of the stent widely patent. 3. Study chest is otherwise negative. CTA ABD and Pelvis: 1. Unremarkable CT angiogram of the abdominal aorta and its major branches, as well as the iliac arteries. 2. The common femoral and superficial femoral arteries are widely patent bilaterally. 3. There is a large and nearly occlusive focal filling defect identified within the distal left popliteal artery just above the bifurcation consistent with an embolus. 4. There is a small nonocclusive filling defect identified at the origin of the right tibioperoneal trunk consistent with a small embolus. 5. There is three-vessel runoff to the foot bilaterally. 6. There are no acute infectious or inflammatory findings in the abdomen or pelvis. 7. A 1.7 cm hypervascular lesion in the inferior right lobe of the liver is unchanged from previous and although incompletely characterized likely represents a small hemangioma. 8. There is mild soft tissue edema in the left lower extremity which is asymmetric to the right. 9. Additional findings as above. 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 Thrombus of aorta is considered to be insignificant and no evidence of endograft leak Needs follow up with [facility] Vascular surgery in [place] Hypertension stable Continue Amlodipine Hypokalemia Likely 2/2 diuretics Replace Potassium as needed Monitor Ongoing tobacco abuse [facility] to quit H/O Osteomyelitis right fourth finger Continue Bactrim Rx (last dose August 2018) DVT Px: On Heparin ggt Code Status: Full Code Total Time Total Time Spent Total Time Spent (In Minutes): 42 minutes Total Time Includes: Examination of the Patient, Discharge Planning, Medication Reconciliation, Communication With Other Providers and Other Discharge Plan Discharge Items [facility] Disposition: [facility] Reason For Visit: LE THROMBUS Discharge Diagnosis: 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 Discharge Goals: Decrease discomfort, Improve disease control and Improve function Activity: Resume your previous activity Non-emergency contact: Primary Care Provider and Surgeon Call non-emergency contact if: you have any medication questions, your symptoms worsen, your pain is not controlled, your pain is worsening, your pain is unusual for you and you have a fever Diet: Heart Healthy Addtl Provider Instructions: Follow up with your Physician in 1 week Follow up with your Vascular Surgeon in [facility] in 1-2 weeks Quit smoking tobacco as advised Seek immediate medical attention if your symptoms reoccur or worsen Prescriptions: Continue warfarin 7.5 mg Tablet 7.5 mg PO HS RF: 0 benzoyl peroxide 5 % Lotion 1 applic TOPICAL BID RF: 0 sulfamethoxazole-trimethoprim [Bactrim DS] 800-160 mg Tablet 1 tab PO BID RF: 0 amlodipine 10 mg Tablet 10 mg PO DAILY RF: 0 mirtazapine [Remeron] 15 mg Tablet 15 mg PO HS RF: 0 hydrochlorothiazide 12.5 mg Tablet 12.5 mg PO DAILY RF: 0 Stand-Alone Forms: [facility] Discharge Orders: Discharge Order (Routine); Ordered 07/26/18 Ordered By: Onur Lacey Admission Data Admit Date/Time: 07/25/18 00:53 Attending Provider: Onur Lacey Admit Provider: Omega Dowell Primary Care Provider: Lilian DE DIOS Other Providers: Omega Dowell ; Fabiano Ye Service: Surgical Services Other Pending Studies at Discharge: No
[2018-07-26 13:59] LABS: Partial Thromboplastin Ratio 2.1
[2018-07-26 14:01] LABS: Partial Thromboplastin Time 54.1 Seconds (21.0-31.0)
== END 2018-07-26 15:12 | DRG 300 ==
LOC: ED 20:28 → SUATTDRO 07-25 00:53 → 3W 07-25 00:53